=== PATIENT | female | born 1995 | race Caucasian/White ===

== ENCOUNTER 2024-03-11 15:08 | Outpatient (CLI) | payer OTHER ==
--- NOTE | 2024-03-11 16:14 | Sleep Patient Instructions ---
Sleep Center Visit Summary - Patient Visit Information Reason for Visit: Initial consultation - Patient Instructions Additional Instructions: You will continue with CPAP therapy with pressure set at 5-15 cmH2O. A supply prescription will be sent to your DME supplier. We encourage you to continue to try to lose weight. Please follow up with the sleep care office in 1-2 months. - Clinic Information Contact: [facility] [address] [place] [address] [email or web address] T: [phone]
--- NOTE | 2024-03-11 16:19 | SLEEP CARE CONSULTATION ---
Information from patient questionnaire entered by Daja Ocampo. I have reviewed and concur with the information entered by Daja Ocampo. This document represents the service I personally performed and the decisions made by me, Merly Rodas ARNP. History of Present Illness Service Date and Time: 03/11/2024 1508 Reason for Visit: New patient, Previously diagnosed sleep apnea, sleep apnea on CPAP therapy Chief Complaint: reports: Unrefreshed sleep, Fatigue, Frequent awakenings at night, Other (UPDATE SUPPLIES) Date of Onset: 5YRS Usual bedtime: 2129 Time it takes to fall asleep: 4HRS Snores at night: Yes Observed to quit breathing while asleep: No Sleeps alone due to snoring: No Number of times waking at night: 4-6 Reasons for waking at night: reports: Other (UNKNOWN). denies: Choking, Gasping for air Toss, Turn, or Twitch while sleeping: Yes Recalls having dreams: No Usually gets out of bed at: 0700 Feels refreshed in the morning: No Morning headache: Yes Sleepy or fatigued during the day: Yes Ever fallen asleep while driving: No Takes day naps: No Dreams during day naps: No Prior sleep studies: Yes Year and Where: [place], [place] in 10/31/2021 Type of Sleep Study: Polysomnography Additional HPI information: CELESTINE CRESPO was previously diagnosed to have mild, AHI 7.6, obstructive sleep apnea-hypopnea syndrome as seen in sleep study dated 10/31/2021 through [facility] and comes in today to establish care for CPAP therapy. - Parasomnia Symptoms Ever been unable to move upon waking from sleep: No Walks in sleep: No Talks in sleep: No Ever acted out dreams in sleep: No Ever felt weak in the knees when startled or emotional: No Bothered by creepy, crawly, restless sensations in legs: No Problems with memory or concentration: No CPAP Compliance Data - Data Reviewed with Patient Average duration of nightly device use: 1.3 hours Compliance rate %: 0 (2/365 days used) Current pressure setting (cmH2O): 5-15 Average residual AHI: 0.2 Compliance data discussion: She has a ResMed Airsense 11 machine that she received in 2020. She was getting supplies in [place] but she moved here. She is using a F20 but prefer the Dreamwear full face with small cushion. Subjective Missed days of use due to: reports: mask issues (needs supplies) Patient concerns: reports: mask discomfort, mask leak noise. denies: aerophagia, air blowing in eyes, condensation in mask/hose, nasal congestion, dry mouth, nose, throat, epistaxis Observed to snore while using device: No Current pressure setting perceived as: comfortable On therapy, patient: reports: sleeping better, awakening more refreshed, being more awake and alert during the day, more rested overall. denies: drowsiness while driving Initial [place] Sleepiness Scale score: 9 (03/10/24) Past Medical History Past Medical History: reports: Anxiety Social History The patient's occupation is a [place]. Patient is and lives in . Have you smoked in the past 12 months: No Alcohol use: Yes Alcohol amount and frequency: 6OZ WINE 3X WEEKLY Caffeine use: Yes Caffeine amount and frequency: 8OZ COFFEE EVERY MORNING Family History Family history of sleep disordered breathing: Yes Family Hx Sleep Apnea: Mother: Snoring, Father: Snoring Allergies and Home Medications Known drug allergies: No Drug allergies reviewed: Yes Home medication list reviewed: Yes (as listed) Allergy and home medication list: Allergies No Known Drug Allergies Allergy (Verified 03/10/24 13:10) Home Medications Medication Instructions Recorded Confirmed Last Taken Type Magnesium See Rx Instructions .ROUTE .COMPLEX 03/11/24 03/11/24 Unknown History Review of Systems Cardiovascular: denies: high blood pressure Gastrointestinal: denies: heartburn Neurological: denies: headaches Psychiatric: reports: anxiety Ear/Nose/Throat: reports: nasal congestion, wisdom teeth removed. denies: tonsillectomy Endocrine: reports: sluggishness Musculoskeletal: reports: joint pain, neck pain Immunologic: reports: allergies to food or environment Physical Exam Vital signs obtained and entered by: DAJA Dougherty MA Blood Pressure: 119/76 (RIGHT ARM) Cuff size: regular Heart Rate: 87 O2 Saturation: 99 Height: 5 ft 3 in Weight: 175 lb 12.8 oz Body Mass Index: 31.1 BMI Classification: Obese Neck circumference: 13 Mouth and throat: narrow oropharynx Soft palate: long Hard palate: normal Uvula: normal Uvula visualization: 50% Mallampati Class II Tongue: normal in size Tonsils: 2+ Neck: normal w/o lymphadenopathy or thyromegaly Heart: regular rate and rhythm Lungs: clear bilaterally Impression and Plan 1. Obstructive Sleep Apnea-Hypopnea Syndrome, mild, with poor treatment compliance and good apnea control. On CPAP therapy, the patient has better sleep quality and is more rested overall. She has not been able to consistently use her CPAP because she has been unable to get supplies to use the CPAP. She was waiting on referrals to get supplies when she was transferred to [facility]. She would just like to get supplies so she can resume using the CPAP. I will have my regional office coordinator inform of DME options. A DWO prescription will then be made. Patient advised to contact this office if further supply problems. I will have her follow up in 1-2 months to make sure she got supplies and check her compliance. She voice understanding and agreement with plan of care. Patient's apnea severity and rationale for treatment to reduce apnea, improve sleep quality and reduce cardiovascular and cerebrovascular events was reviewed. I also reviewed the benefit of consistent device use of CPAP for anxiety. 2. Obesity, unspecified. Currently patients BMI is 31.1. Obesity increases the risk of apnea, CPAP pressure requirements and overall health risks especially cardiovascular and diabetes. Thus patient is advised to lose weight. * Continue auto CPAP pressure at 5-15 cmH2O * Transfer DME * Update supply prescription * Notify me if snoring with mask or feeling that the pressure is too much or too little * Attempt to lose weight * Call this office if any problems using CPAP * Return for follow up in 1-2 months, or sooner if concerns arise Counseling Topics: Spare mask, Weight loss health impact Prescriptions: Device supplies (with DME transfer) Visit Type: In Office Time Spent with Patient (minutes): 30 Provider Statement: I spent 100% of the Face to Face Visit with the patient with greater than 50% spent counseling the patient and coordination of care.
[2024-03-11 16:23] VITALS: BP 119/76; O2SAT 99
== END 2024-03-11 15:09 | disposition home or self-care (01) ==
LOC: SC 15:08
PROVIDERS: ATTEND Nurse Practitioner Family
DX: G47.33 Obstructive sleep apnea (adult) (pediatric) (principal); E66.9 Obesity, unspecified; Z68.31 Body mass index [BMI] 31.0-31.9, adult
CPT/HCPCS: 99203; 99212